=== PATIENT | male | born 1965 | race Caucasian/White ===

== ENCOUNTER 2019-04-13 14:24 | Emergency (ER) | payer MEDICAID ==
[2019-04-13] MEDS ORDERED: Ciprofloxacin 0.3% Ophth Soln 2.5 ML Bottle ONE (14:30)
--- NOTE | 2019-04-13 15:45 | EDM.PDOC ---
ED HPI GENERAL MEDICAL PROBLEM - General Chief Complaint: ENT Problem Stated Complaint: SOMETHING IN EYE Time Seen by Provider: 04/13/19 14:35 Source of Information: Reports: Patient History Limitations: Reports: No Limitations - History of Present Illness INITIAL COMMENTS - FREE TEXT/NARRATIVE: This patient presents to the ED for evaluation of an eye concern. He states he has "had something in his eye" for the past 2 weeks and "can't take it anymore. " He is unsure about what it might be but thinks it could be a sliver of wood. He has not made any attempts to remove it on his own. He denies other concerns or complaints. Duration: Constant Location: Reports: Other (inside left eye) Quality: Reports: Same as Previous Episode Severity: Mild left eye Pain Score (Numeric/FACES): 6 - Related Data Allergies Allergy/AdvReac Type Severity Reaction Status Date / Time No Known Allergies Allergy Verified 04/13/19 14:33 Home Meds: Home Meds NK [No Known Home Meds] 02/11/15 [History] ED ROS ENT - Review of Systems Review Of Systems: See Below Constitutional: Reports: No Symptoms HEENT: Reports: Eye Pain, Other ("foreign body" sensation left eye) Cardiovascular: Reports: No Symptoms GI/Abdominal: Reports: No Symptoms Musculoskeletal: Reports: No Symptoms Skin: Reports: No Symptoms Neurological: Reports: No Symptoms ED EXAM, ENT - Physical Exam Exam: See Below Exam Limited By: No Limitations General Appearance: Alert, WD/WN, No Apparent Distress Eye Exam: Bilateral Eye: PERRL (1 mm yellowish bump inner aspect inside left upper eyelid) Ears: Normal External Exam Nose: Normal Inspection Head: Atraumatic, Normocephalic Neck: Full Range of Motion Respiratory/Chest: No Respiratory Distress Extremities: Normal Range of Motion Neurological: Alert, Oriented Psychiatric: Normal Affect Course - Vital Signs Last Recorded V/S: Last Vital Signs Temp 36.0 C 04/13/19 14:30 Pulse 88 04/13/19 14:30 Resp 16 04/13/19 14:30 BP 133/90 04/13/19 14:30 Pulse Ox 99 04/13/19 14:30 - Re-Assessments/Exams Free Text/Narrative Re-Assessment/Exam: 04/13/19 15:48 This patient presents for evaluation of a lump on eyelid. This is consistent with a internal chalazion. Will start warm compresses and eye antibiotic drops. No indication for oral antibiotics as no signs of orbital cellulitis. Would not incise the lesion and this point. Stable to follow up with opthalmology. Departure - Departure Time of Disposition: 15:00 Disposition: Home, Self-Care 01 Condition: Good Clinical Impression: Chalazion left upper eyelid - Discharge Information *PRESCRIPTION DRUG MONITORING PROGRAM REVIEWED*: No Instructions: Teo Referrals: PCP,None [Primary Care Provider] - Forms: ED Department Discharge Additional Instructions: Use 1-2 drops every 8 hours of the antibiotic. Use a warm pack as well for comfort at least twice a day. Return to the clinic or the ER as needed.
== END 2019-04-13 14:43 | disposition home or self-care (01) ==
LOC: LB.ED 14:24
DX: H00.14 Chalazion left upper eyelid (principal)
CPT/HCPCS: 99283; A9270-GY

== ENCOUNTER 2019-12-18 17:12 | Emergency (ER) | payer MEDICAID ==
[2019-12-18] MEDS: EPINEPHrine 1:10,000 1 MG/10 ML Syringe IVPUSH SCH ×3 (17:15→17:22)
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
== END 2019-12-18 18:00 | disposition expired ==
LOC: LB.ED 17:45
DX: S00.03XA Contusion of scalp, initial encounter (principal); S40.211A Abrasion of right shoulder, initial encounter; S20.319A Abrasion of unspecified front wall of thorax, initial encounter; S00.81XA Abrasion of other part of head, initial encounter; S70.211A Abrasion, right hip, initial encounter; S80.811A Abrasion, right lower leg, initial encounter; V28.4XXA Motorcycle driver injured in noncollision transport accident in traffic accident, initial encounter; Y92.410 Unspecified street and highway as the place of occurrence of the external cause
CPT/HCPCS: 36415; 71045; 80048; 80307; 85025; 92950; 99285; A0425; A0429; J0171; 96374; 99284